=== PATIENT | female | born 1945 | race Caucasian/White ===

== ENCOUNTER 2023-04-29 05:33 | Day surgery (SDC) | payer MEDICARE, OTHER ==
[2023-04-29] MEDS ORDERED: Xylocaine 1% Vial 30 ML PF IJ ONE (06:19)
[2023-04-29] MEDS ORDERED: Marcaine Mpf 0.5% Vial 30 Ml ONE (06:19)
[2023-04-29 06:45] VITALS: RESP 16; TEMP 98.1
[2023-04-29] MEDS ORDERED: Versed 2 MG/2 ML Injection ONE (06:49)
[2023-04-29] MEDS ORDERED: SUBLIMAZE 100 MCG/2 ML ONE (06:49)
[2023-04-29] MEDS ORDERED: DIPRIVAN 200 MG/20 ML IV ONE (06:49)
[2023-04-29] MEDS ORDERED: Xylocaine-Mpf 2% 5 Ml Vial ONE (06:50)
[2023-04-29] MEDS ORDERED: Lactated Ringers 1,000 ML IV SCH (07:00)
[2023-04-29] MEDS ORDERED: CLINDAMYCIN-D5W 900 MG/50 ML*** 900 MG/50 ML BAG IV SCH (07:00)
[2023-04-29] MEDS ORDERED: PHENYLEPHRINE HCL ONE (07:29)
[2023-04-29 08:37] VITALS: PULSE 60
[2023-04-29 08:59] VITALS: BP 113/53; O2SAT 99
--- NOTE | 2023-04-29 09:14 | XRAY ---
Indication: Left 3rd metatarsal resection. Intraoperative fluoroscopy provided for 33 seconds. 3 digital spot images submitted for interpretation demonstrates osteotomy distal shaft 3rd metatarsal. Correlate with intraoperative findings/report. Incidental incompletely visualized 1st phalanx screw.
--- NOTE | 2023-04-29 09:42 | XRAY ---
33 seconds of fluoroscopy was used in surgery for a left 3rd metatarsal resection.
--- NOTE | 2023-05-02 10:51 | OP ---
SURGERY DATE/TIME: 04/29/2023 0711 PREOPERATIVE DIAGNOSES: 1) Pain left foot. 2) Fat pad atrophy left foot. 3) Metatarsal deformity third metatarsal left foot. 4) Difficulty with ambulation. POSTOPERATIVE DIAGNOSES: 1) Pain left foot. 2) Fat pad atrophy left foot. 3) Metatarsal deformity third metatarsal left foot. 4) Difficulty with ambulation. PROCEDURE: Metatarsal osteotomy left third metatarsal. SURGEON: Kj Aguirre DPM. FLUE LINING DIPPER: None. ANESTHESIA: Monitored anesthesia care. HEMOSTASIS: Ankle tourniquet which was applied but not inflated and a pressure dressing. ESTIMATED BLOOD LOSS: Minimal. MATERIALS: 3-0 Nylon. INJECTABLES: 10 cc of 1:1 mixture of 1% lidocaine plain and 0.5% bupivacaine plain injected in a metatarsal block-type fashion to the left foot. INDICATION FOR SURGERY: Fercho is a very pleasant 78-year-old female who came to my service for pain secondary to intractable plantar keratosis which has caused a significant amount of pain with ambulation for a long time. She had seen other providers in the past which have dealt with this issue with debridement of intractable plantar keratoma and shoe gear. However at this time she has failed all therapy. From a conservative standpoint wishes far more definitive treatment. At this time discussions were held in regards to options and at this time the patient wishes to proceed with an osteotomy to the fifth metatarsal and alleviate some of the pressure to this area this is in hopes to reduce the forefoot overload. However secondary to her fat pad atrophy, there is high probability that the patient will have to be showed appropriately and will likely have to have something on her feet at all times going forward in order to prevent any transfer lesions. As a result the patient is amenable to this plan. All risks, complications and benefits of surgical intervention were discussed with the patient in depth including but not limited to infection, hematoma, seroma, possibility of failure of surgical intervention, possible failure of healing of bone and possible malunion. She understands this and wishes to proceed. Plenty of time was allowed for the questions to be asked which were answered to her apparent satisfaction. No guarantees have been provided as to the outcome of surgery at this time. DESCRIPTION OF PROCEDURE AND FINDINGS: At this time the patient is brought into the OR and placed on the OR table in the supine position. At this time general anesthesia was administered until the patient was sedated. Following this attention was directed to the third metatarsal head which correlated with the plantar pressure. An 18 mm sagittal saw was introduced making a stab incision and elevating with a [place]. The soft tissue resecting the first metatarsal head just at the metatarsal neck to offload the pressure in this area. At this time this was checked under fluoroscopic guidance and deemed to be adequate. The pressure was alleviated from the third metatarsal head. The pressure was alleviated from the third metatarsal head as it was originally was prior. Following this, copious amounts of sterile saline were utilized to flush the surgical site. Stitch was introduced in horizontal mattress-type fashion to the dorsal aspect of the surgical site. A dressing consisting of Betadine, Adaptic, 4x4, Kerlix and LOIS was applied to the patient's left lower extremity with the foot orthogonal relative to longitudinal axis of the leg. The patient was then reversed from anesthesia and returned to the postoperative anesthesia care unit with vital signs stable and vascular status intact. The patient handled the anesthesia as well as the procedure without significant complication. Postoperative orders as indicated in the patient's discharge chart.
== END 2023-04-29 09:00 | disposition home or self-care (01) ==
LOC: SDC 05:33
PROVIDERS: ATTEND Podiatrist Foot & Ankle Surgery
DX: M21.6X2 Other acquired deformities of left foot (principal); M79.4 Hypertrophy of (infrapatellar) fat pad; R26.2 Difficulty in walking, not elsewhere classified; M79.672 Pain in left foot
CPT/HCPCS: 73630; 76000; J2001; J2250; J2371; J2704; J3010

== ENCOUNTER 2023-06-10 06:10 | Day surgery (SDC) | payer MEDICARE, OTHER ==
[2023-06-10] MEDS ORDERED: Lactated Ringers 1,000 ML IV SCH (06:30)
[2023-06-10 06:56] LABS: Hematocrit 38.3 % (35-47); Hemoglobin 12.4 g/dL (12.0-16.0); Mean Cell Volume 92.3 fL (78-100); Mean Corpuscular Hemoglobin 29.9 pg (26-32); Mean Corpuscular Hgb Concent. 32.4 g/dL (32-36); Mean Platelet Volume 9.6 fL (7.5-11.0); Platelet Count 195 x10^3/uL (150-450); Red Blood Count 4.15 x10^6/uL (4.1-5.4); Red Cell Distribution Width 12.6 % (11.5-14.0); White Blood Count 4.3 x10^3/uL (4.0-10.5)
[2023-06-10 07:02] VITALS: RESP 16
[2023-06-10 07:26] LABS: ALBUMIN 4.1 g/dL (3.5-5.0); ANION GAP 10.3 MEQ/L (5-15); BILIRUBIN,TOTAL 0.5 mg/dL (0.2-1.3); Calcium 8.8 mg/dL (8.4-10.2); Creatinine 1 0.58 mg/dL (0.52-1.04); EST GLOMERULAR FILTRATION RATE 93.7 ML/MIN; Potassium 3.7 mmol/L (3.5-5.1); Total Protein 6.9 g/dL (6.3-8.2)
[2023-06-10] MEDS ORDERED: CLINDAMYCIN-D5W 900 MG/50 ML*** 900 MG/50 ML BAG IV SCH (07:30)
[2023-06-10] MEDS ORDERED: Marcaine Mpf 0.5% Vial 30 Ml ONE (07:57)
[2023-06-10] MEDS ORDERED: Xylocaine 1% Vial 30 ML PF IJ ONE (07:57)
[2023-06-10] MEDS ORDERED: DIPRIVAN 200 MG/20 ML IV ONE ×2 (08:30→09:03)
[2023-06-10] MEDS ORDERED: SUBLIMAZE 100 MCG/2 ML ONE (08:37)
[2023-06-10] MEDS ORDERED: Versed 2 MG/2 ML Injection ONE (08:40)
[2023-06-10] MEDS ORDERED: Ephedrine Sulfate 50 MG/ML ONE (08:53)
[2023-06-10 10:37] VITALS: TEMP 96.5
--- NOTE | 2023-06-10 10:45 | XRAY ---
Indication: Right 5th metatarsal head resection, extensor tendon lengthening, and 5th hammertoe correction. Intraoperative fluoroscopy provided for 13 seconds. 5 digital spot images submitted for interpretation ultimately demonstrates surgical excision distal 5th metatarsal. Correlate with intraoperative findings/report.
[2023-06-10 11:05] VITALS: BP 113/57; PULSE 74; O2SAT 97
--- NOTE | 2023-06-13 10:10 | OP ---
SURGERY DATE/TIME: 06/10/2023 0845 PREOPERATIVE DIAGNOSES: 1) Forefoot overload. 2) Tailor's bunion, right foot. 3) Hammer toe fifth digit. 4) Pain right foot. POSTOPERATIVE DIAGNOSES: 1) Forefoot overload. 2) Tailor's bunion, right foot. 3) Hammer toe fifth digit. 4) Pain right foot. PROCEDURES: 1) Partial excision of metatarsal head 5. 2) Extensor tendon lengthening. 3) Correction of hammer toe. SURGEON: Kj Aguirre DPM. GIN POLE OPERATOR: None. ANESTHESIA: Monitored anesthesia care with intraoperative local injection consisting of 20 cc of 1:1 mixture of 1% lidocaine plain and 0.5% bupivacaine plain injected in a mini-Brannon block-type fashion. HEMOSTASIS: Ankle tourniquet set to 250 mm of [place] for 20 total tourniquet minutes. ESTIMATED BLOOD LOSS: Less than 5 cc. MATERIALS: 4-0 Monocryl, 4-0 Nylon. INJECTABLES: 20 cc of 1:1 mixture of 1% lidocaine plain and 0.5% bupivacaine plain injected in a mini-Brannon block to the right foot. INDICATION FOR SURGERY: Fercho is a very pleasant 78-year-old female who presented to my office with bilateral foot pain. As a result the patient does have significant plantar fat pad atrophy and conservative modalities that she has been working with per her current grant specialist, Dr. Uvaldo Felipe in [place], had failed. As a result, she has sought out surgical intervention. Several weeks ago her left foot was worked on and she has noticed a significant amount of improvement to the pain that she has been experiencing on this side. From that standpoint, the patient would like to proceed with the right foot. Given that she has forefoot overload, plantar fat pad atrophy and a Tailor's bunion, options were discussed and as far as consistency in pain relief, metatarsal head removal was recommended. She also has a significant amount of contracture and discussion was held in regards to what options were available to correct this issue. In this regard, decision was made to proceed with an extensor tendon lengthening and if that failed to proceed with a correction of hammer toe with either derotational arthroplasty or an arthroplasty of the joint. From that standpoint, the patient understands all risks, complications and benefits of surgical intervention at this time including but not limited to infection, hematoma, seroma, possibility of delayed wound healing, nonwound healing and possibility of need for further surgical intervention at a later date. The patient specifically in this case has been warned of transfer metatarsalgia and that it in a conservative approach following the surgery she will have shoe wear on at all times following surgical intervention to prevent transfer lesion and overload of the forefoot. The patient understands all of this and wishes to proceed. DESCRIPTION OF PROCEDURE AND FINDINGS: The patient was brought into the OR and placed on the OR table in the supine position. At this time monitored anesthesia care was administered until the patient was sedated. At this time, a well-padded ankle tourniquet was applied and the patient was set to 250 mm of [place]. The right foot was prepped and draped in the typical sterile fashion and lowered onto the surgical field. At this time attention was directed to the dorsal lateral aspect of the fifth metatarsal where a linear incision was made after exsanguinating the foot and inflating being careful not to damage any neurovascular structures. The extensor tendon was identified immediately and Z-lengthening was performed and this was retracted out of the site. Capsulotomy was performed in order to reveal the fifth metatarsal head at the surgical neck and 18 mm sagittal saw was utilized to resect the metatarsal head in a beveled orientation in order to prevent pressure to the bottom of the fifth metatarsal. At this time the head was removed. There was still a dorsal contracture even with the extensor tendon lengthening and capsulotomy having been performed with the metatarsal head resection. Decision was made to proceed with a hammer toe correction with a direct arthroplasty. There was no significant varus or valgus present this was performed and the toe sat relatively straight. From that standpoint, copious amounts of sterile saline were utilized to flush the surgical site. 4-0 Monocryl was utilized to repair the extensor tendon this was then flushed again and 4-0 Monocryl was utilized to coapt the subcutaneous skin edges in a simple interrupted buried-type fashion and then simple interrupted Nylon 4-0 was performed at the level of the fifth toe as well as a horizontal mattress-type fashion stitch to the metatarsal head resection site. A dressing consisting of Betadine, Adaptic, 4x4, Kerlix and LOIS was applied. The patient was then reversed from anesthesia and returned to the postoperative anesthesia care unit with vital signs stable and vascular status intact. The patient handled the anesthesia as well as the procedure without significant complication. Postoperative orders as indicated in the patient's inpatient chart.
--- NOTE | 2023-06-13 16:30 | XRAY ---
13 seconds of fluoroscopy was used in surgery for a right 5th metatarsal head resection, extensor tendon lengthening, and 5th hammertoe correction.
== END 2023-06-10 11:30 | disposition home or self-care (01) ==
LOC: SDC 06:10
PROVIDERS: ATTEND Podiatrist Foot & Ankle Surgery
DX: M21.621 Bunionette of right foot (principal); M20.41 Other hammer toe(s) (acquired), right foot; M79.671 Pain in right foot; M77.41 Metatarsalgia, right foot
CPT/HCPCS: 28122; 28285; 28899; 36415; 73630; 76000; 80053; 85027; 93005; J2001; J2250; J2704; J3010